=== PATIENT | male | born 1985 | race Caucasian/White ===

== ENCOUNTER 2018-05-22 12:39 | Outpatient (CLI) | payer OTHER | END 2018-05-22 12:57 | disposition home or self-care (01) | LOC: RAD 12:39 → EDBD 12:39 → TOM 12:39 | DX: M54.2 Cervicalgia (principal); R11.0 Nausea ==

== ENCOUNTER 2018-08-14 11:02 | Outpatient (CLI) | payer OTHER | END 2018-08-14 11:09 | disposition home or self-care (01) | LOC: TOM 11:02 | DX: M54.6 Pain in thoracic spine (principal) ==

== ENCOUNTER 2018-10-12 08:33 | Outpatient (CLI) | payer OTHER | END 2018-10-12 08:40 | disposition home or self-care (01) | LOC: TOM 08:33 | DX: R93.89 Abnormal findings on diagnostic imaging of other specified body structures (principal) ==

== ENCOUNTER 2019-04-08 13:46 | Emergency (ER) | payer OTHER ==
[~2019-04-08] VITALS: Ht 167.6 cm; Wt 83.9 kg
== END 2019-04-08 15:19 | disposition home or self-care (01) ==
LOC: ER 13:46
DX: S90.112A Contusion of left great toe without damage to nail, initial encounter (principal); W22.8XXA Striking against or struck by other objects, initial encounter; Y93.89 Activity, other specified; Y92.098 Other place in other non-institutional residence as the place of occurrence of the external cause; Y99.8 Other external cause status